=== PATIENT | male | born 1995 | race Caucasian/White ===

== ENCOUNTER 2017-10-13 19:58 | Emergency (ER) | payer OTHER ==
[2017-10-13 20:56] VITALS: BP 133/88
--- NOTE | 2017-10-13 22:45 | XRay Report ---
FINAL REPORT PROCEDURE: XR TIBIA FIBULA 2V RT TECHNIQUE: RIGHT tibia and fibula radiographs, AP and lateral views. CPT 41622 HISTORY: Bump and pain right upper Tib/Fib COMPARISON: No prior studies are available for comparison. FINDINGS: No fracture is seen. Cortical and trabecular pattern appear normal. No radiopaque foreign bodies are seen. Small oval calcifications are seen in the soft tissues anterior to the tibia appear to represent small phleboliths. No other abnormalities are seen. No abnormal periosteal reaction or focal bone loss is seen. IMPRESSION: No acute or focal abnormalities are identified..
--- NOTE | 2017-10-13 22:47 | XRay Report ---
FINAL REPORT PROCEDURE: XR SPINE LUMBOSACRAL 2-3V TECHNIQUE: Lumbar spine radiographs, including AP, lateral, and lumbosacral spot views. CPT 07879 HISTORY: Lower back pain COMPARISON: No prior studies are available for comparison. FINDINGS: No fracture or subluxation is seen. The L4-5 disc space is mildly narrowed. Minimal anterior osteophytic spurs are seen at this level. Disc spaces otherwise well maintained. Posterior elements are intact and show no focal abnormalities. Mild sclerotic change visualized in the left SI joint. IMPRESSION: Mild degenerative disc disease L4-5 level. Mild osteoarthritic changes left SI joint. No acute abnormalities are seen..
--- NOTE | 2017-10-14 00:16 | Emergency Department Report ---
ED Back Pain/Injury HPI - General Chief Complaint: Extremity Injury, Lower Stated Complaint: BUMP ON RIGHT LEG Time Seen by Provider: 10/13/17 23:17 Source: patient Limitations: No Limitations - History of Present Illness Initial Comments: 22-year-old obese male comes in complaining of back pain for 1 week a soreness towards sexual activity. Patient also complains of bump on the upper anterior right tibia-fibula 1 day. Patient reports that he works when he is laying on his back constantly. And he denies hitting his right lower lambert. Patient denies any fever chills no nausea no vomiting no new urinary symptoms no penile discharge no fecal or urinary incontinence no numbness to the groin area. Denies any trauma to his back. He reports that the back response to Aleve when he takes it. MD Complaint: back pain -: week(s) (1) Similar Symptoms Previously: No Severity scale (0 -10): 10 Quality: sharp, stabbing, aching Consistency: intermittent Improves With: medication Worsens With: movement Associated Symptoms: denies other symptoms Treatments Prior to Arrival: NSAIDS - Related Data Previous Rx's Medication Instructions Recorded Last Taken Type Naproxen [Naprosyn TAB] 500 mg PO BID #60 tablet 10/14/17 Unknown Rx Allergies Allergy/AdvReac Type Severity Reaction Status Date / Time No Known Allergies Allergy Unverified 10/13/17 20:56 ED Review of Systems ROS: Stated complaint: BUMP ON RIGHT LEG Other details as noted in HPI Genitourinary: denies: urgency, dysuria Musculoskeletal: back pain, arthralgia (right lambert pain), other (swollen tib- fib proximal) Skin: denies: rash, lesions Neurological: as per HPI Psychiatric: denies: anxiety, depression ED Past Medical Hx - Past Medical History Previous Medical History?: No - Surgical History Past Surgical History?: No - Social History Smoking Status: Never Smoker Substance Use Type: None - Medications Home Medications: Home Medications Medication Instructions Recorded Confirmed Last Taken Type Naproxen [Naprosyn TAB] 500 mg PO BID #60 tablet 10/14/17 Unknown Rx ED Physical Exam - General Limitations: No Limitations General appearance: alert, in no apparent distress - Head Head exam: Present: atraumatic, normocephalic - ENT ENT exam: Present: mucous membranes moist - Respiratory Respiratory exam: Present: normal lung sounds bilaterally. Absent: respiratory distress - Cardiovascular Cardiovascular Exam: Present: regular rate, normal rhythm. Absent: systolic murmur, diastolic murmur, rubs, gallop - Extremities Exam Extremities exam: Present: full ROM, other (right tib-fib there is soft tissue swelling with some tenderness not erythematous rash). Absent: calf tenderness - Back Exam Back exam: Present: normal inspection, full ROM. Absent: tenderness - Neurological Exam Neurological exam: Present: alert, oriented X3 - Psychiatric Psychiatric exam: Present: normal affect, normal mood - Skin Skin exam: Present: warm, dry, intact, normal color. Absent: rash ED Course Vital Signs 10/13/17 20:46 Temperature 98.8 F Pulse Rate 109 H Respiratory 16 Rate Blood Pressure 133/88 O2 Sat by Pulse 98 Oximetry ED Medical Decision Making - Medical Decision Making Patient has been evaluated by this provider fast track. Patient currently has no back pain at this time. X-ray of back and tib-fib right was ordered Back x-ray shows some mild degenerative disc disease. X-ray of tib-fib shows dear is a small pheblith Discussed the patient Aleve or ibuprofen will be a good treatment. Discussed the patient if symptoms persist or gets worse he should follow up with orthopedist. Patient verbalizes understanding Critical care attestation.: If time is entered above; I have spent that time in minutes in the direct care of this critically ill patient, excluding procedure time. ED Disposition Clinical Impression: Degenerative disc disease Qualifiers: Spinal region: lumbosacral Qualified Code(s): M51.37 - Other intervertebral disc degeneration, lumbosacral region Disposition: - TO HOME OR SELFCARE Is pt being admited?: No Does the pt Need Aspirin: No Condition: Stable Instructions: Acute Low Back Pain (ED), Low Back Strain (ED) Additional Instructions: Take naproxen on a when necessary basis. If symptoms persist or gets worse please follow-up with orthopedist. Prescriptions: Naproxen [Naprosyn TAB] 500 mg PO BID #60 tablet Referrals: PRIMARY MD DENISHA [Primary Care Provider] - 3-5 Days [facility] [Provider Group] - 3-5 Days TRES LUNDY MD [Staff Physician] - 3-5 Days
== END 2017-10-14 00:23 | disposition home or self-care (01) ==
LOC: ED 19:58
DX: M51.36 Other intervertebral disc degeneration, lumbar region (principal)
CPT/HCPCS: 72100; 99283